=== PATIENT | male | born 1980 | race Caucasian/White ===

== ENCOUNTER 2020-12-08 02:36 | Emergency (ER) | payer SELFPAY ==
[~2020-12-08] VITALS: Ht 175.3 cm; Wt 68.2 kg
[2020-12-08] MEDS ORDERED: normal saline 1000ML IV soln IVB ONE (04:25)
[2020-12-08 05:57] VITALS: BP 143/91
== END 2020-12-08 06:42 | disposition home or self-care (01) ==
LOC: ER 02:37
DX: T40.1X1A Poisoning by heroin, accidental (unintentional), initial encounter (principal); J45.909 Unspecified asthma, uncomplicated; F11.90 Opioid use, unspecified, uncomplicated; Z88.8 Allergy status to other drugs, medicaments and biological substances; Y92.89 Other specified places as the place of occurrence of the external cause
CPT/HCPCS: 99283; J7030